=== PATIENT | female | born 1960 | race Caucasian/White ===

== ENCOUNTER 2018-10-17 11:46 | Outpatient (CLI) | payer OTHER ==
--- NOTE | 2018-10-17 16:29 | RAD ---
CHEST TWO VIEW SERIES: INDICATIONS: Right rib pain. Chest pain. COMPARISON: 03/25/2014 FINDINGS: Interstitial prominence of each lung is present. There is no evidence of lobar consolidation, effusi on, or discrete pneumothorax. The cardiac silhouette is normal in size. IMPRESSION: 1. No focal consolidation. 2. There is diffuse interstitial prominence of the lungs. Correlate clinically, as findings could r elate to interstitial lung disease or edema. Imaging followup may be obtained as necessary. POS: ALEJANDRO
== END 2018-10-17 11:47 | disposition home or self-care (01) ==
LOC: BICRAD 11:46
PROVIDERS: ATTEND Nurse Practitioner Family
DX: R07.9 Chest pain, unspecified (principal); R07.81 Pleurodynia
CPT/HCPCS: 71046